=== PATIENT | female | born 1990 | race Caucasian/White ===

== ENCOUNTER 2021-10-14 13:27 | Outpatient (CLI) | payer MEDICARE, MEDICAID, SELFPAY ==
--- NOTE | 2021-10-14 13:36 | XR_ITS ---
WS: [id number] Exam: XR lumbar spine 2-3V* [id number] Date/Time of Exam: 10/14/2021 1:36 PM Reason For Exam: ACUTE MIDLINE LOW BACK PAIN W/RIGHT SIDED SCIATICA No fracture or dislocation. Narrowing of the L5-S1 disc. Remaining discs are well preserved. Posterio r elements are unremarkable. XR/XR lumbar spine 2-3V* [id number] IMPRESSION: 1. Narrowing of the L5-S1 disc. No fracture or malalignment.
== END 2021-10-14 13:28 | disposition home or self-care (01) ==
PROVIDERS: PCP Family Medicine; Visit Provider Nurse Practitioner Family
DX: M54.41 Lumbago with sciatica, right side (principal)
CPT/HCPCS: 72100

== ENCOUNTER 2023-09-22 10:25 | Outpatient (RCR) | payer MEDICARE, SELFPAY | END 2023-10-15 23:59 | disposition home or self-care (01) | LOC: SPT 10:25 | PROVIDERS: PCP Family Medicine; Visit Provider Nurse Practitioner Family | DX: M54.41 Lumbago with sciatica, right side (principal) | CPT/HCPCS: 97110; 97161 ==